=== PATIENT | male | born 1950 | race Caucasian/White ===

== ENCOUNTER 2016-09-11 23:09 | Emergency (ER) | payer OTHER ==
[~2016-09-11] VITALS: Ht 185.4 cm; Wt 86.4 kg
[2016-09-11 23:22] VITALS: Ht 185.4 cm; Wt 86.4 kg
[2016-09-11] MEDS ORDERED: CLOP75TA27 PO (23:31)
[2016-09-11] MEDS ORDERED: LISI20TA11 PO (23:31)
[2016-09-11] MEDS ORDERED: ATOR40TA68 PO (23:32)
[2016-09-11] MEDS ORDERED: SOD CHLORIDE 0.9% 1,000 ML IV STA (23:42)
[2016-09-12 00:21] LABS: ALBUMIN 3.8 g/dl (3.3-4.9)
[2016-09-12 00:22] LABS: POTASSIUM 3.7 mmol/L (3.5-5.1)
[2016-09-12 00:24] LABS: BILIRUBIN,INDIRECT 0.2 mg/dl (0-1.1); BILIRUBIN,TOTAL 0.2 mg/dl (0.2-1.3); CREATININE 1.05 mg/dl (0.61-1.24)
[2016-09-12 00:25] LABS: ALBUMIN/GLOBULIN RATIO 1.02; CALCIUM 8.6 mg/dl (8.4-10.2); TOTAL PROTEIN 7.5 g/dl (6.1-8.1)
[2016-09-12 00:42] LABS: BASOPHILS % 0.2 % (0.0-2.0); HEMATOCRIT 41.6 % (42.0-52.0); HEMOGLOBIN 14.6 g/dl (14.0-18.0); LYMPHOCYTES # 0.7 10^3/ul (0.8-2.9); LYMPHOCYTES % 13.9 % (15.0-51.0); MEAN CORPUSCULAR HEMOGLOBIN 31.4 pg (29.0-33.0); MEAN CORPUSCULAR HGB CONC 35.1 g/dl (32.0-37.0); MEAN CORPUSCULAR VOLUME 89.4 fl (82.0-101.0); MEAN PLATELET VOLUME 8.2 fl (7.4-10.4); MONOCYTE # 0.7 10^3/ul (0.3-0.9); MONOCYTES % 14.6 % (0.0-11.0); NEUTROPHIL # 3.5 10^3/ul (1.6-7.5); NEUTROPHILS % 71.3 % (39.0-77.0); PLATELET COUNT 159 10^3/UL (140-440); RED BLOOD COUNT 4.65 10^6/ul (4.70-6.10); RED CELL DISTRIBUTION WIDTH 14.1 % (11.5-14.5); UNCORRECTED WBC 4.9 10^3/ul (4.8-10.8); WHITE BLOOD COUNT 4.9 10^3/ul (4.8-10.8)
[2016-09-12 00:44] LABS: CONDITION 1
[2016-09-12] MEDS ORDERED: OSLT75C PO (01:49)
--- NOTE | 2016-09-12 01:52 | ERD ---
ER Documentation Chief Complaint Date/Time DATE: 09/12/16 TIME: 01:50 Chief Complaint generalized weakness,s/p fall,denies syncope/dizziness HPI This is a 66-year-old male who complains yesterday that he had flulike symptoms of fever chills malaise myalgia and dry cough. He says today the symptoms are better but he feels generally weak. Says he feels so weak that he has a hard time walking. He has no fall no syncope or dizziness no headache no fever today no chest pain shortness of breath abdominal pain nausea vomiting or diarrhea. He also denies myalgias today. ROS All systems reviewed and are negative except as per history of present illness. Medications Home Meds Active Scripts Oseltamivir Phosphate* (Tamiflu*) 75 Mg Capsule, 75 MG PO BID for 5 Days, CAP Prov:ANTONIO NAVARRO DO 09/12/16 Reported Medications Atorvastatin* (Atorvastatin*) 40 Mg Tablet, 40 MG PO QHS, #30 TAB 09/11/16 Clopidogrel Bisulfate (Clopidogrel) 75 Mg Tablet, 75 MG PO DAILY, #30 TAB 09/11/16 Lisinopril* (Lisinopril*) 20 Mg Tablet, 20 MG PO DAILY, #30 TAB 09/11/16 Allergies Allergies: Coded Allergies: No Known Allergy (Unverified , 09/11/16) PMhx/Soc History of Surgery: Yes (angiograms w cardiac stents) Anesthesia Reaction: No Hx Neurological Disorder: No Hx Respiratory Disorders: No Hx Cardiac Disorders: Yes (high cholesterol, cardiac stents, HTN) Hx Psychiatric Problems: No Hx Miscellaneous Medical Probl: Yes (IBS) Hx Alcohol Use: No Hx Substance Use: Yes (medical marijuana daily) Hx Tobacco Use: Yes (1.5 packs/ day) Smoking Status: Current every day smoker FmHx Family History: No coronary disease Physical Exam Vitals Vital Signs Date Time Temp Pulse Resp B/P Pulse Ox O2 Delivery O2 Flow Rate FiO2 09/12/16 00:11 98.9 57 23 143/81 95 Room Air 09/11/16 23:22 99.3 66 18 152/77 95 Physical Exam Const: Well-developed, well-nourished Head: Atraumatic, normocephalic Eyes: Normal Conjunctiva, PERRLA, EOMI, normal sclera, no nystagmus ENT: Normal External Ears, Nose and Mouth, moist mucus membranes. Neck: Full range of motion. No meningismus, no lymphadenopathy. Resp: Clear to auscultation bilaterally, no wheezing, rhonchi, rales Cardio: Regular rate and rhythm, no murmurs, S1 S2 present Abd: Soft, non tender x 4, non distended. Normal bowel sounds, no guarding or rebound, no pulsitile abdominal masses or bruits Skin: No petechiae or rashes, no ecchymosis , no maculopapular rash Back: No midline or flank tenderness Ext: No cyanosis, or edema, FROM x 4, normal inspection, neurovascularly intact x 4 Neur: Awake and alert, STR 5/5 x 4, sensation intact x 4, no focal findings, cerebellum intact Psych: Normal Mood and Affect Result Diagram: 09/11/16234909/11/160 Results 24 hrs Laboratory Tests Test 09/11/16 23:50 Alanine Aminotransferase (ALT/SGPT) 30IU/L Albumin 3.8g/dl Albumin/Globulin Ratio 1.02 Alkaline Phosphatase 93IU/L Anion Gap 14 Aspartate Amino Transf (AST/SGOT) 35IU/L Basophils # 0.010^3/ul Basophils % 0.2% Blood Urea Nitrogen 13mg/dl Calcium Level 8.6mg/dl Carbon Dioxide Level 27mmol/L Chloride Level 93mmol/L Creatinine 1.05mg/dl Direct Bilirubin 0.00mg/dl Eosinophils # 0.010^3/ul Eosinophils % 0.0% Globulin 3.70g/dl Glucose Level 97mg/dl Hematocrit 41.6% Hemoglobin 14.6g/dl Indirect Bilirubin 0.2mg/dl Lymphocytes # 0.710^3/ul Lymphocytes % 13.9% Mean Corpuscular Hemoglobin 31.4pg Mean Corpuscular Hemoglobin Concent 35.1g/dl Mean Corpuscular Volume 89.4fl Mean Platelet Volume 8.2fl Monocytes # 0.710^3/ul Monocytes % 14.6% Neutrophils # 3.510^3/ul Neutrophils % 71.3% Nucleated Red Blood Cells # 0.010^3/ul Nucleated Red Blood Cells % 0.0/100WBC Platelet Count 50401^3/UL Potassium Level 3.7mmol/L Red Blood Count 4.6510^6/ul Red Cell Distribution Width 14.1% Sodium Level 130mmol/L Total Bilirubin 0.2mg/dl Total Protein 7.5g/dl White Blood Count 4.910^3/ul Current Medications Medications (Trade) Dose Ordered Sig/Haile Route PRN Reason Start Time Stop Time Status Last Admin Dose Admin Sodium Chloride (NS) 1,000 ml @ 1,000 mls/hr Q1H STAT IV 09/11/16 23:42 09/12/16 00:41 DC 09/12/16 00:08 Procedures/MDM Chest X-ray 1V Interpreted by me: Soft Tissue: No acute abnormalities Bones: No acute abnormalities Mediastinum/Cardiac Silhouette/Lungs: No acute abnormalities, mild right lower lobe atelectasis Patient has slightly low sodium at 130. Flu swabs are negative however he does describe the clinical presentation flulike illness that could be a false negative reading Put him on Tamiflu and follow-up. Departure Diagnosis: Primary Impression: Viral illness Additional Impression: Acute weakness Condition: Stable Patient Instructions: Weakness, Unk Cause ANTONIO NAVARRO DO Sep 12, 2016 01:52
--- NOTE | 2016-09-12 02:02 | RADRPT ---
PROCEDURE: CHEST - 1 VIEW CLINICAL INDICATION: 66-year-old male with chest/abdominal pain. TECHNIQUE: A single frontal AP a view of the chest was performed portably. The images were review ed on a PACS workstation. COMPARISON: None. FINDINGS: The cardiomediastinal silhouette is prominent but within normal limits. There is no evidence for an infiltrate. There is no evidence for congestive heart failure. There is no evidence for pneumothor ax. The osseous structures are intact. IMPRESSION: No evidence for active cardiopulmonary disease. .Chris Loco MD, MD Date Time Electronically viewed and signed by .Chris Loco MD, MD on 09/12/2016 02:02 .Alex/
[2016-09-12 02:16] VITALS: BP 154/81; PULSE 85; RESP 19; TEMP 98.9
== END 2016-09-12 03:01 | disposition home or self-care (01) ==
LOC: E/R 23:09
DX: R50.9 Fever, unspecified (principal); R40.2362 Coma scale, best motor response, obeys commands, at arrival to emergency department; R53.1 Weakness; I10 Essential (primary) hypertension; F17.210 Nicotine dependence, cigarettes, uncomplicated; R40.2252 Coma scale, best verbal response, oriented, at arrival to emergency department; Z95.5 Presence of coronary angioplasty implant and graft
CPT/HCPCS: 36415; 71010; 80053; 85025; 87400; 99284; J7030

== ENCOUNTER 2016-09-12 13:14 | Inpatient (IN) | payer OTHER ==
[~2016-09-12] VITALS: Ht 185.4 cm; Wt 90.1 kg
[~2016-09-12 13:14] MED LIST: ATOR40TA68 PO; CLOP75TA27 PO; LISI20TA11 PO; OSLT75C PO
[2016-09-12] MEDS ORDERED: SOD CHLORIDE 0.9% 1,000 ML IV STA (13:17)
[2016-09-12] MEDS ORDERED: SOD CHLORIDE 0.9% 1,000 ML IV ONE (14:00)
[2016-09-12] MEDS ORDERED: LIDOCAINE 1% (MDV) 20 ML INJ SC ONE (14:00)
[2016-09-12 14:15] LABS: BASOPHILS % 0.4 % (0.0-2.0); EOSINOPHILS % 0.1 % (0.0-7.0); HEMATOCRIT 42.9 % (42.0-52.0); LYMPHOCYTES % 19.6 % (15.0-51.0); MEAN CORPUSCULAR HEMOGLOBIN 31.4 pg (29.0-33.0); MEAN CORPUSCULAR HGB CONC 35.1 g/dl (32.0-37.0); MEAN CORPUSCULAR VOLUME 89.7 fl (82.0-101.0); MEAN PLATELET VOLUME 8.1 fl (7.4-10.4); MONOCYTE # 0.7 10^3/ul (0.3-0.9); MONOCYTES % 13.4 % (0.0-11.0); NEUTROPHIL # 3.2 10^3/ul (1.6-7.5); NEUTROPHILS % 66.5 % (39.0-77.0); PLATELET COUNT 159 10^3/UL (140-440); RED BLOOD COUNT 4.78 10^6/ul (4.70-6.10); RED CELL DISTRIBUTION WIDTH 14.3 % (11.5-14.5); UNCORRECTED WBC 4.9 10^3/ul (4.8-10.8); WHITE BLOOD COUNT 4.9 10^3/ul (4.8-10.8)
[2016-09-12 14:19] LABS: CONDITION 1
[2016-09-12 14:20] LABS: POTASSIUM 4.1 mmol/L (3.5-5.1)
[2016-09-12 14:22] LABS: CREATININE 0.85 mg/dl (0.61-1.24)
[2016-09-12 14:23] LABS: CALCIUM 8.6 mg/dl (8.4-10.2)
[2016-09-12 14:35] LABS: TROPONIN-I 0.044 ng/ml (0.00-0.12)
--- NOTE | 2016-09-12 14:44 | RADRPT ---
PROCEDURE: CT Brain without contrast. CLINICAL INDICATION: Head trauma. Evaluate for intracranial hemorrhage. TECHNIQUE: A multiplanar CT of the brain was performed on a CT scanner utilizing axial imaging fro m the skull base through the vertex without IV contrast. The CTDIvol is 43.16 mGy and the DLP is 72 0.23 mGycm. One or more of the following dose reduction techniques were utilized: Automated exposu re control, adjustment of the mA and/or kV according to patient size, use of iterative reconstructio n technique. COMPARISON: None FINDINGS: No evidence of intracranial hemorrhage or abnormal extra-axial fluid collection. The brain parenchyma is normal attenuation morphology with preservation of guzman white differentiatio n and age appropriate size of the ventricles and subarachnoid spaces. Minimal mucosal thickening in the ethmoid air cells bilaterally compatible with mild chronic inflamm atory change.. The posterior fossa contents, brainstem, craniocervical junction, orbits, pituitary axis, paranasal sinuses, mastoid air cells, and calvarium are unremarkable. IMPRESSION: 1. No intracranial hemorrhage or acute intracranial. 2. Early ischemic injury may be occult to CT imaging and diffusion weighted MRI may be considered as clinically warranted. RPTAT:AAJJ Physician Gladys Date Time Electronically viewed and signed by Physician Gladys on 09/12/2016 14:44 PINKY/
[2016-09-12 14:59] VITALS: TEMP 98.3
[2016-09-12 15:58] LABS: # OF CELLS COUNTED 100
[2016-09-12 16:49] LABS: GLUCOSE,CSF 51 mg/dl (50-80)
[2016-09-12 17:04] LABS: %CREANATED RBC CSF 0 %; CSF COLOR PINKISH; CSF#TUBE COUNT TUBE#1; CSF#TUBES REC'D 4
[2016-09-12 17:05] LABS: CSF VOLUME 3.5 ml
[2016-09-12 17:06] LABS: CSF COLOR COLORLESS; CSF VOLUME 3.5 ml; CSF#TUBES REC'D 4
[2016-09-12 17:07] LABS: %CREANATED RBC CSF 0 %; CSF#TUBE COUNT TUBE#4
--- NOTE | 2016-09-12 17:18 | ERA ---
ER Documentation Chief Complaint Date/Time DATE: 09/12/16 TIME: 17:04 Chief Complaint BROUGHT IN BY EMS DUE TO GENERALIZED WEAKNESS WITH NO ONE SIDED DEFICIT HPI 66-year-old male who complains of 3-4 days of flulike symptoms including fever, chills, malaise, myalgia, generalized weakness and dry cough. He states he fell yesterday due to weak legs and injured the bridge of his nose and left knee yesterday prior to coming to the emergency department. He states he feels so weak that he has a hard time walking and has had multiple episodes of watery diarrhea today. He was seen and evaluated yesterday and a full workup was unremarkable and after IV hydration he was given a prescription for Tamiflu and discharged back home. He states he used 1 dose of Tamiflu although for continued symptoms and inability to get out of bed he called 911 again and was transported here. He has no fall no syncope or dizziness no headache no fever today no chest pain shortness of breath abdominal pain nausea vomiting or diarrhea. Patient denies recent antibiotic use, sick contacts, or travel. He does have a history irritable bowel syndrome, which she states is not usually associated with diarrhea. ROS All systems reviewed and are negative except as per history of present illness. Medications Home Meds Reported Medications Atorvastatin* (Atorvastatin*) 40 Mg Tablet, 40 MG PO QHS, #30 TAB 09/11/16 Clopidogrel Bisulfate (Clopidogrel) 75 Mg Tablet, 75 MG PO DAILY, #30 TAB 09/11/16 Lisinopril* (Lisinopril*) 20 Mg Tablet, 20 MG PO DAILY, #30 TAB 09/11/16 Discontinued Scripts Oseltamivir Phosphate* (Tamiflu*) 75 Mg Capsule, 75 MG PO BID for 5 Days, CAP Prov:ANTONIO NAVARRO DO 09/12/16 Allergies Allergies: Coded Allergies: No Known Allergy (Unverified , 09/11/16) PMhx/Soc IBS, hypertension, coronary artery disease status post coronary artery stenting History of Surgery: No Anesthesia Reaction: No Hx Neurological Disorder: No Hx Respiratory Disorders: No Hx Cardiac Disorders: No Hx Psychiatric Problems: No Hx Miscellaneous Medical Probl: No Hx Alcohol Use: No Hx Substance Use: No Hx Tobacco Use: No Smoking Status: Never smoker FmHx Family History: No diabetes Physical Exam Vitals Vital Signs Date Time Temp Pulse Resp B/P Pulse Ox O2 Delivery O2 Flow Rate FiO2 09/12/16 14:59 98.3 85 20 122/77 98 Room Air 09/12/16 14:59 Nasal Cannula 09/12/16 13:17 98.5 80 18 142/79 100 Physical Exam GENERAL: Well-developed, well-nourished, afebrile, dehydrated HEENT: Dry mucous membranes with tongue forrowing, superficial abrasion to the bridge of the nose without bony deformity, no cervical spine tenderness or step- off deformities, no goiter, no jaundice or icterus, extraocular movements intact without pain. No submandibular induration, and no pharyngeal erythema NEURO: Alert and oriented 3, cranial nerves II through XII intact bilaterally, pupils equal round reactive to light, no focal deficits or facial asymmetry, sensation intact distally Strength 5/5 in upper and lower extremities bilaterally. Patellar deep tendon reflexes are 2/4 bilaterally and normal. CARDIAC: Regular rate and rhythm, no murmurs rubs or gallops LUNGS: Clear bilaterally no wheezing crackles or stridor ABDOMEN: Soft nontender, no guarding, no rigidity, no rebound, no psoas sign no obturator sign. Normoactive bowel sounds SKIN: Warm and dry to touch, superficial abrasion to the bridge of the nose and anterior left knee, no hematomas, no lacerations, no ecchymosis, no target lesions, and without ulcers EXTREMITIES: No clubbing cyanosis or edema, calves are bilaterally symmetrical, no Homans sign, no popliteal cord sign. Distal pulses equal and bilateral PSYCH: Normal affect without agitation or irritability Result Diagram: 09/12/16 1400 09/12/16 1400 Results 24 hrs Laboratory Tests Test 09/12/16 14:00 Anion Gap 15 Basophils # 0.010^3/ul Basophils % 0.4% Blood Urea Nitrogen 14mg/dl Calcium Level 8.6mg/dl Carbon Dioxide Level 26mmol/L Chloride Level 96mmol/L Creatinine 0.85mg/dl Eosinophils # 0.010^3/ul Eosinophils % 0.1% Glucose Level 88mg/dl Hematocrit 42.9% Hemoglobin 15.0g/dl Lymphocytes # 1.010^3/ul Lymphocytes % 19.6% Mean Corpuscular Hemoglobin 31.4pg Mean Corpuscular Hemoglobin Concent 35.1g/dl Mean Corpuscular Volume 89.7fl Mean Platelet Volume 8.1fl Monocytes # 0.710^3/ul Monocytes % 13.4% Neutrophils # 3.210^3/ul Neutrophils % 66.5% Nucleated Red Blood Cells # 0.010^3/ul Nucleated Red Blood Cells % 0.0/100WBC Platelet Count 71861^3/UL Potassium Level 4.1mmol/L Red Blood Count 4.7810^6/ul Red Cell Distribution Width 14.3% Sodium Level 133mmol/L Troponin I 0.044ng/ml White Blood Count 4.910^3/ul Current Medications Medications (Trade) Dose Ordered Sig/Haile Route PRN Reason Start Time Stop Time Status Last Admin Dose Admin Sodium Chloride (NS) 1,000 ml @ 1,000 mls/hr Q1H STAT IV 09/12/16 13:17 09/12/16 14:16 DC 09/12/16 14:12 Lidocaine 20 ml 20 ml ONCE ONCE SC 09/12/16 14:00 09/12/16 14:01 DC Sodium Chloride (NS) 1,000 ml @ 1,000 mls/hr Q1H ONCE IV 09/12/16 14:00 09/12/16 14:59 DC Procedures/MDM IV line was established patient was placed on properties supervisor rhythm strip revealed a sinus bradycardia at about 60 bpm with upright P and T waves. Patient was afebrile. Blood and urine cultures have been ordered results are pending I will follow-up. EKG performed, read by me revealed a sinus bradycardia 58 bpm, left axis deviation and a right ventricular conduction delay, QRS duration 112 ms, no concerning ST elevations or depressions noted. CT scan of the brain was performed that was negative for acute bleed mass or shift. Chest X-ray 1V Interpreted by me: Soft Tissue: No acute abnormalities Bones: No acute abnormalities Mediastinum/Cardiac Silhouette/Lungs: No acute abnormalities Lumbar Puncture by me: Patient consented, time out performed, sterilely prepped/draped, anesthetized locally. Anesthesia: 1% lidocaine locally Location: One interspace below the iliac crest Technique: 25 gauge needle with stylet for entry and removal of needle Results: Clear CSF fluid No post procedure complications, bleeding, numbness or weakness. CBC was unremarkable, electrolytes revealed a hyponatremia at 133, BUN/ creatinine 14/0.9, liver function tests are normal, troponin was negative. CSF protein, glucose, white cells have been ordered results are pending I will follow-up. Cerebrospinal fluid protein electrophoresis and cultures have also been ordered, further management and diagnostic testing deferred to hospitalist. I administered 3 L normal saline intravenously for dehydration Patient has continued URI symptoms, severe dehydration clinically, diarrhea, and generalized as well as lower extremity weakness. Guillain [place] syndrome, although unlikely, has been considered. Further diagnostic testing and imaging if indicated will be deferred to inpatient managing team. Departure Diagnosis: Primary Impression: Acute weakness Additional Impressions: Dehydration Diarrhea Qualified Code: R19.7 - Diarrhea, unspecified type Condition: GAYATHRI Rutherford MD Sep 12, 2016 17:17
[2016-09-12 19:35] LABS: ADD UMIC YES; URINE BILIRUBIN (Dip) NEGATIVE (NEGATIVE); URINE BLOOD (Dip) 2+ (NEGATIVE); URINE COLOR LT. YELLOW (YELLOW); URINE GLUCOSE (Dip) NEGATIVE (NEGATIVE); URINE KETONES (Dip) 15 (NEGATIVE); URINE LEUKOCYTE ESTERASE (Dip) NEGATIVE (NEGATIVE); URINE NITRITE (Dip) NEGATIVE (NEGATIVE); URINE TOTAL PROTEIN (Dip) NEGATIVE (NEGATIVE); URINE UROBILINOGEN (Dip) 0.2 E.U./dL (0.1-1.0)
[2016-09-12 19:41] LABS: URINE RBCS 0-2 /HPF (0)
[2016-09-12 20:08] LABS: BARBITURATES NEGATIVE (NEGATIVE); BENZODIAZEPINES NEGATIVE (NEGATIVE); CANNABINOIDS POSITIVE (NEGATIVE); COCAINE NEGATIVE (NEGATIVE); OPIATES NEGATIVE (NEGATIVE)
[2016-09-12 20:10] VITALS: BP 144/81; RESP 19
[2016-09-12] MEDS ORDERED: ONDANSETRON 4 MG INJ IV PRN (21:00)
[2016-09-12] MEDS ORDERED: HYDROCODONE/APAP (5/325) TAB PO PRN (21:00)
[2016-09-12 21:28] VITALS: Ht 185.4 cm; Wt 90.1 kg
--- NOTE | 2016-09-12 21:29 | HP ---
DATE OF ADMISSION: 09/12/2016 PRESENTING COMPLAINT: Generalized weakness. HISTORY OF PRESENTING COMPLAINT: Mr. Siegel is a 66-year-old male who was brought in by EMS [facility] of generalized weakness associated with chills and flu-like symptoms for the last 3 days and the weakness is worse in his extremities. The patient states he was here, was seen in our emergency matthew m yesterday after he fell because of said weakness and treated for flu-like symptoms and actually di scharged home on Tamiflu. The patient stated that he took 1 dose of Tamiflu, has been drinking a lo t of water without relief. He unfortunately is unable to maintain his activities of daily living. He was too weak and so he called 911 to bring him back to the [facility]. In the emergency room, the juanita antoine, upon history, is known to have a history of irritable bowel syndrome and he does have diarrh ea, but, per report, only once or twice a month, but over the last couple of days, he has been havin g a lot more diarrhea. Because of this history, the physician was worried about the possibility of Guillain-[place] syndrome and she decided to a lumbar puncture, which was uneventful. The preliminary cell count from the lumbar puncture was also not suggestive of an acute infection, but is being sen t for further studies to rule out GBS. The patient is being admitted for further management and car e. PAST MEDICAL HISTORY: Positive for IBS, dyslipidemia, and high blood pressure as well as the patien t is on Plavix for coronary artery stent. He has a history of coronary artery disease. PAST SURGICAL HISTORY: Stenting only. ALLERGIES: NO KNOWN DRUG ALLERGIES. SOCIAL HISTORY: The patient does not smoke tobacco or drink alcohol, but he does use marijuana recr eationally. REVIEW OF SYSTEMS: A 12-point review of system was done. Pertinent findings are as noted in HPI. FAMILY HISTORY: Noncontributory. HOME MEDICATIONS: 1. Lipitor 40 p.o. at bedtime. 2. Plavix 75 daily. 3. Lisinopril 20 daily. PHYSICAL EXAMINATION: VITAL SIGNS: Temperature 98.3, pulse 76, respirations 20, blood pressure 157/92, saturations 99% on room air. GENERAL: The patient was alert and oriented, in no distress, slightly lethargic. He did specifical ly look dehydrated. HEENT: Head is normocephalic. Mucous membranes are dry. NECK: Supple. No tenderness. No stiffness. No JVD. CHEST: Clear to auscultation. CARDIOVASCULAR: S1 and S2. No murmurs. ABDOMEN: Soft, nontender, nondistended. EXTREMITIES: Lower extremities were without edema. NEUROLOGIC: He was able to move all extremities, but he just had general feeling of weakness. Crescencio ed any numbness or tingling sensation. PSYCHIATRIC: Cooperative with exam. LABORATORY VALUES: Basically unremarkable save for his sodium that was low yesterday and is a littl e better today, but still low at 133. Carbon dioxide level 63. The potassium and the rest of the b asic metabolic profile was normal. I ordered a stat creatinine kinase and that came back elevated a t 4655, but liver profile was normal. His stat C-reactive protein also came back mildly elevated at 1.3. His urinalysis had 2+ hemoglobin, but not otherwise suggestive of a urinary tract infection. Toxicology screen was positive for marijuana use. IMAGING STUDIES: Chest x-ray did not show any acute cardiopulmonary abnormalities. CT scan of the brain showed no intracranial hemorrhage or acute intracranial pathology. The radiologist did note t hat early ischemic injury may be occult for CT and they recommended an MRI if that was a concern, wh ich in this case is not. ASSESSMENT: A 66-year-old male who presents today with flu-like symptoms as well as a history of my algia and weakness managed as follows: 1. Probable viral syndrome. Influenza screen was negative. Continue supportive care. 2. Mild rhabdomyolysis causing severe weakness. Rehydration and serial monitoring. 3. Hyponatremia, mild, improved from prior. Continue gentle rehydration. 4. Follow up cerebrospinal fluid findings to completely rule out Guillan-[place] syndrome. 5. History of irritable bowel syndrome. However, will get stool studies to rule out other patholog y. History of diarrhea. Rule out acute flare also causing symptoms. 6. High blood pressure is ____ control. 7. Dyslipidemia for which we will be holding his statin therapy in view of myalgia. PLAN: Admit the patient to medical/surgical floor. [place] therapy as indicated above. Supporti ve care will include IV fluid therapy, pain control, antiemetics, and antipyretics. Further interve ntions will depend on his clinical course. Although the decision on how to handle an IBS flare, I w ill speak with GI for possible consult and follow their recommendations. This has been reviewed wit h the patient in detail, questions have been answered. For prophylaxis, he is on SCDs as well as or al PPI. Dictated By: MARITA MARINO MD BA/NTS Conf#: [id number] DID#: [id number]
[2016-09-12] MEDS: SOD CHLORIDE 0.9% 1,000 ML IV SCH (23:17)
[2016-09-12] MEDS: FAMOTIDINE 20 MG TAB PO SCH (23:17)
[2016-09-12] MEDS: LACTOBACILLUS CHEW TAB PO SCH (23:17)
[2016-09-12 23:50] LABS: CK-MB 5.83 ng/ml (0.0-2.4); TROPONIN-I 0.052 ng/ml (0.00-0.12)
[2016-09-13 08:09] VITALS: BP 149/79; RESP 18
[2016-09-13] MEDS: SOD CHLORIDE 0.9% 1,000 ML IV SCH ×3 (09:00→18:10)
[2016-09-13] MEDS: LACTOBACILLUS CHEW TAB PO SCH ×3 (09:04→21:05)
[2016-09-13] MEDS: FAMOTIDINE 20 MG TAB PO SCH ×2 (09:04→21:05)
[2016-09-13] MEDS: CLOPIDOGREL 75 MG TAB PO SCH (09:04)
[2016-09-13] MEDS: LISINOPRIL 20 MG TAB PO SCH (09:04)
[2016-09-13] MEDS ORDERED: GLYCOPYRROLATE 1 MG INJ ONE (09:45)
[2016-09-13] MEDS ORDERED: PROPOFOL 20 ML ONE (09:45)
[2016-09-13] MEDS ORDERED: FENTAnyl 50 MCG/ML VIAL ONE (09:45)
[2016-09-13] MEDS ORDERED: MIDAZOLAM 1 MG/ML 2 ML INJ ONE (09:45)
[2016-09-13] MEDS ORDERED: ROCURONIUM 50 MG INJ ONE (09:45)
[2016-09-13] MEDS ORDERED: LIDOCAINE 2% (SDV) 5 ML INJ ONE (09:45)
[2016-09-13] MEDS ORDERED: NEOSTIGMINE 3 MG/3 ML SYRINGE ONE (09:45)
[2016-09-13] MEDS ORDERED: hydrALAzine 20 MG INJ ONE (09:46)
[2016-09-13 10:40] LABS: BASOPHILS % 0.6 % (0.0-2.0); EOSINOPHILS % 0.1 % (0.0-7.0); HEMATOCRIT 41.3 % (42.0-52.0); HEMOGLOBIN 14.4 g/dl (14.0-18.0); LYMPHOCYTES # 1.2 10^3/ul (0.8-2.9); LYMPHOCYTES % 30.1 % (15.0-51.0); MEAN CORPUSCULAR HGB CONC 34.9 g/dl (32.0-37.0); MEAN CORPUSCULAR VOLUME 88.6 fl (82.0-101.0); MEAN PLATELET VOLUME 7.9 fl (7.4-10.4); MONOCYTE # 0.4 10^3/ul (0.3-0.9); MONOCYTES % 10.8 % (0.0-11.0); NEUTROPHIL # 2.2 10^3/ul (1.6-7.5); NEUTROPHILS % 58.4 % (39.0-77.0); PLATELET COUNT 145 10^3/UL (140-440); RED BLOOD COUNT 4.66 10^6/ul (4.70-6.10); RED CELL DISTRIBUTION WIDTH 14.1 % (11.5-14.5); UNCORRECTED WBC 3.8 10^3/ul (4.8-10.8); WHITE BLOOD COUNT 3.8 10^3/ul (4.8-10.8)
[2016-09-13 10:41] LABS: CONDITION 1
[2016-09-13 11:08] LABS: ALBUMIN 3.4 g/dl (3.3-4.9)
[2016-09-13 11:10] LABS: BILIRUBIN,INDIRECT 0.1 mg/dl (0-1.1); BILIRUBIN,TOTAL 0.1 mg/dl (0.2-1.3); TOTAL PROTEIN 6.7 g/dl (6.1-8.1)
[2016-09-13 11:11] LABS: MAGNESIUM 1.7 mg/dl (1.7-2.5)
[2016-09-13 11:19] LABS: CK-MB 7.51 ng/ml (0.0-2.4)
[2016-09-13 11:22] LABS: TROPONIN-I 0.056 ng/ml (0.00-0.12)
[2016-09-13 11:41] LABS: THYROID STIMULATING HORMONE 3.45 MIU/L (0.465-4.680)
[2016-09-13] MEDS ORDERED: ONDANSETRON 4 MG INJ ONE (13:46)
--- NOTE | 2016-09-13 15:41 | PN ---
Date/Time of Note Date/Time of Note DATE: 09/13/16 TIME: 15:37 Assessment/Plan VTE Prophylaxis VTE Prophylaxis Intervention: SCD's Lines/Catheters IV [facility] Peripheral IV Urinary Cath still in place: No Assessment/Plan Chief Complaint/Hosp Course Assessment and plan 1. Generalized weakness suspect secondary to viral syndrome. Follow-up on lumbar puncture results. 2. Rhabdomyolysis with severe weakness. Continue IV hydration. Follow up on levels in a.m. 3. Hyponatremia continue IV fluid. 4. History of irritable bowel syndrome. Patient being ruled out for C. difficile. Follow up on results. 5. CAD. Continue on antiplatelet therapy Disposition and plan: Continue physical therapy. Await final results of CSF fluid. We'll get neurologist pending clinical course. Continue inpatient monitoring for now. Discussed care with Dr. García Problems: Subjective 24 Hr Interval Summary Free Text/Dictation Still reports having some generalized weakness but improved a little bit today. Exam/Review of Systems Vital Signs Vitals Vital Signs Date Time Temp Pulse Resp B/P Pulse Ox O2 Delivery O2 Flow Rate FiO2 09/13/16 08:09 98.2 50 18 149/79 98 09/12/16 19:53 Room Air Intake and Output 09/12/16 09/12/16 09/13/16 14:59 22:59 06:59 Intake Total 1150 ml Output Total 800 ml Balance 350 ml Exam General: No acute signs or symptoms of distress Eyes: pupils equal round, Anicteric sclera Neck: Supple nontender, no JVD Cardiac: S1, S2 auscultated, regular rhythm and rate Pulmonary: No coarse rhonchi or breathing auscultated GI: Abdomen soft nontender nondistended, bowel sounds active Extremities: No edema bilateral lower extremities Skin: Clean dry and intact Neurologic: Alert to person place and time and situation Results Result Diagram: 09/13/16 1000 09/12/16 1400 Results 24 hrs Laboratory Tests Test 09/12/16 15:50 09/12/16 18:23 09/12/16 23:08 09/13/16 10:00 CSF Appearance SLIGHTLY HAZY CSF Cell Count Tube # TUBE#4 CSF Color COLORLESS CSF Crenated Cells 0 CSF Glucose 51 CSF Lymphocytes % 100 CSF Monocytes % CSF Neutrophils % CSF RBC 100 H CSF Total Cells Counted 100 CSF Total Protein 69 H CSF Tubes Submitted 4 CSF Volume 3.5 CSF WBC 1 Urine Amphetamines Screen NEGATIVE Urine Barbiturates NEGATIVE Urine Benzodiazepines Screen NEGATIVE Urine Bilirubin NEGATIVE Urine Cannabinoids POSITIVE Urine Clarity CLEAR Urine Cocaine Screen NEGATIVE Urine Color LT. YELLOW Urine Glucose NEGATIVE Urine Hemoglobin 2+ H Urine Ketones 15 Urine Leukocyte Esterase NEGATIVE Urine Microscopic RBC 0-2 Urine Microscopic WBC 0-2 Urine Nitrite NEGATIVE Urine Opiates Screen NEGATIVE Urine Specific Johnson >=1.030 H Urine Total Protein NEGATIVE Urine Urobilinogen 0.2 E.U./dL Urine pH 5.5 Creatine Kinase 608 H 724 H Creatine Kinase Index 1.0 1.0 Creatinine Kinase MB (Mass) 5.83 H 7.51 H Troponin I 0.052 0.056 Alanine Aminotransferase (ALT/SGPT) 31 Albumin 3.4 Alkaline Phosphatase 75 Aspartate Amino Transf (AST/SGOT) 58 #H Basophils # 0.0 Basophils % 0.6 Direct Bilirubin 0.00 Eosinophils # 0.0 Eosinophils % 0.1 Hematocrit 41.3 L Hemoglobin 14.4 Hemoglobin A1c 5.8 Indirect Bilirubin 0.1 Lymphocytes # 1.2 Lymphocytes % 30.1 Magnesium Level 1.7 Mean Corpuscular Hemoglobin 31.0 Mean Corpuscular Hemoglobin Concent 34.9 Mean Corpuscular Volume 88.6 Mean Platelet Volume 7.9 Monocytes # 0.4 Monocytes % 10.8 Neutrophils # 2.2 Neutrophils % 58.4 Nucleated Red Blood Cells # 0.0 Nucleated Red Blood Cells % 0.0 Platelet Count 145 Red Blood Count 4.66 L Red Cell Distribution Width 14.1 Thyroid Stimulating Hormone (TSH) 3.450 Total Bilirubin 0.1 L Total Protein 6.7 White Blood Count 3.8 #L Medications Medications Current Medications Sodium Chloride (NS) 1,000 ml @ 125 mls/hr Q8H IV Last administered on 09:00; Admin Dose 125 MLS/HR; Start 09/12/16 at 21:00 Famotidine (Pepcid) 20 mg BID PO Last administered on 09/13/16 09:04; Admin Dose 20 MG; Start 09/12/16 at 21:00 Ondansetron HCl (Zofran Inj) 4 mg Q6H PRN IV NAUSEA AND/OR VOMITING; Start at 21:00 Acetaminophen/ Hydrocodone Bitart ([place] (5/325)) 1 tab Q6H PRN PO pain; Start 09/12/16 at 21:00 Lactobacillus Acidoph/Bulgaricus (Floranex) 1 tab TID PO Last administered on 12:30; Admin Dose 1 TAB; Start 09/12/16 at 21:00 Atorvastatin Calcium (Lipitor) 40 mg QHS PO ; Start 09/13/16 at 21:00 Clopidogrel Bisulfate (plaVIX) 75 mg DAILY PO Last administered on 09/13/16 09 :04; Admin Dose 75 MG; Start 09/13/16 at 09:00 Lisinopril (Zestril) 20 mg DAILY PO Last administered on 09/13/16 09:04; Admin Dose 20 MG; Start 09/13/16 at 09:00 MARIETTA SAM Sep 13, 2016 15:41
[2016-09-13 20:01] VITALS: BP 128/72; RESP 20
[2016-09-13] MEDS ORDERED: ATORVASTATIN 40 MG TAB PO SCH (21:00)
[2016-09-14] MEDS: SOD CHLORIDE 0.9% 1,000 ML IV SCH ×3 (03:09→20:02)
[2016-09-14 05:51] LABS: ALBUMIN 3.1 g/dl (3.3-4.9)
[2016-09-14 05:52] LABS: POTASSIUM 3.8 mmol/L (3.5-5.1)
[2016-09-14 05:54] LABS: ALBUMIN/GLOBULIN RATIO 0.96; BILIRUBIN,INDIRECT 0.3 mg/dl (0-1.1); BILIRUBIN,TOTAL 0.3 mg/dl (0.2-1.3); CREATININE 0.81 mg/dl (0.61-1.24); TOTAL PROTEIN 6.3 g/dl (6.1-8.1)
[2016-09-14 05:55] LABS: CALCIUM 7.9 mg/dl (8.4-10.2)
[2016-09-14 06:14] LABS: CK-MB 7.33 ng/ml (0.0-2.4)
[2016-09-14 08:12] VITALS: BP 123/58; RESP 16
[2016-09-14] MEDS: LACTOBACILLUS CHEW TAB PO SCH ×3 (08:46→20:01)
[2016-09-14] MEDS: FAMOTIDINE 20 MG TAB PO SCH ×2 (08:46→20:01)
[2016-09-14] MEDS: CLOPIDOGREL 75 MG TAB PO SCH (08:46)
[2016-09-14] MEDS: LISINOPRIL 20 MG TAB PO SCH (08:47)
[2016-09-14 09:07] LABS: BASOPHILS % 0.3 % (0.0-2.0); EOSINOPHILS % 0.2 % (0.0-7.0); HEMATOCRIT 41.4 % (42.0-52.0); LYMPHOCYTES # 1.3 10^3/ul (0.8-2.9); LYMPHOCYTES % 36.1 % (15.0-51.0); MEAN CORPUSCULAR HGB CONC 33.9 g/dl (32.0-37.0); MEAN CORPUSCULAR VOLUME 91.5 fl (82.0-101.0); MEAN PLATELET VOLUME 8.6 fl (7.4-10.4); MONOCYTE # 0.4 10^3/ul (0.3-0.9); MONOCYTES % 11.6 % (0.0-11.0); NEUTROPHIL # 1.9 10^3/ul (1.6-7.5); NEUTROPHILS % 51.8 % (39.0-77.0); PLATELET COUNT 138 10^3/UL (140-440); RED BLOOD COUNT 4.52 10^6/ul (4.70-6.10); RED CELL DISTRIBUTION WIDTH 13.9 % (11.5-14.5); UNCORRECTED WBC 3.6 10^3/ul (4.8-10.8); WHITE BLOOD COUNT 3.6 10^3/ul (4.8-10.8)
[2016-09-14 09:29] LABS: CONDITION 1
--- NOTE | 2016-09-14 13:26 | CONS ---
Date/Time of Note Date/Time of Note DATE: 09/14/16 TIME: 13:14 Assessment/Plan Assessment/Plan Chief Complaint/Hosp Course 66 year old M with flu-like symptoms, diarrhea, dehydration admitted with mild rhabdomyolysis and generalized weakness. Neurology consulted to evaluate for possible GBS. LP done with mild elevation of protein: 65. Neurologic exam findings show mostly UE weakness in flexion with intact and appropriate deep tendon reflexes. Suspect Viral Myositis and generalized weakness secondary to rhabdomyolysis and dehydration Symptoms are now improving with IVF. Continue supportive care and IV hydration, will reexamine patient again tomorrow PT/OT evaluation Problems: Consultation Date/Type/Reason Admit Date/Time Sep 12, 2016 at 16:56 Date of Consultation: Sep 14, 2016 Type of Consultation: neurology Reason for Consultation r/o GBS Referring Provider: MARIETTA SAM of Present Illness 66 year old M history of IBS, CAD admitted on 09/12 for complaints of generalized weakness with chills and flu-like symptoms, poor PO intake over the past week. This past weekend he had difficulty ambulating in his home, on attempt he fell and had abrasions on his nose and left knee due to weakness. On admission CPK elevated to 724, hemoglobin in urine c/w mild rhabdomyolysis. Given complaints of diarrhea and generalized weakness, LP was done for concern of GBS. CSF protein mildly elevated to 69. Since admission and fluid hydration he reports improvement in his symptoms, worked with physical therapy to ambulate yesterday. His weakness is mostly in UE muscles on flexion. He denies any urinary or bowel incontinence, has chronic LE numbness/tingling denies any new numbness sensation. myalgias generalized weakness diarrhea Past Medical History CAD IBS Social History Smoking Status: Current every day smoker Drug Use: marijuana Exam/Review of Systems Vital Signs Vitals Vital Signs Date Time Temp Pulse Resp B/P Pulse Ox O2 Delivery O2 Flow Rate FiO2 09/14/16 08:12 98.0 44 16 123/58 100 09/12/16 19:53 Room Air Intake and Output 09/13/16 09/13/16 09/14/16 15:00 23:00 07:00 Intake Total 1920 ml 1620 ml Output Total 1550 ml 1100 ml Balance 370 ml 520 ml Exam awake and alert oriented x3 speech fluent appears thin, malnourished follows all commands CN: JOESPH, VFF, EOMI no nystagmus, V1-3 intact no facial asymmetry palate upgoing uvula midline scm/trap intact tongue midline Motor: UE strength shoulder shrug 5/5, biceps 4/5, 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 5-/5 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 5-/5 LE strength hip flexion/extension 5/5 knee flexion/extension 5/5 ankle dorsiflexion and plantarflexion 5/5 mild weakness mostly in UE flexion Sensory intact throughout no sensory level Reflexes UE 2+ biceps and triceps, LE Patellar 2+, AJ 1+ toes downgoing Results Result Diagram: 09/14/160 09/14/160 Results 24 hrs Laboratory Tests Test 09/14/16 04:40 Alanine Aminotransferase (ALT/SGPT) 33 Albumin 3.1 L Albumin/Globulin Ratio 0.96 Alkaline Phosphatase 66 Anion Gap 15 Aspartate Amino Transf (AST/SGOT) 58 H Basophils # 0.0 Basophils % 0.3 Blood Urea Nitrogen 12 Calcium Level 7.9 L Carbon Dioxide Level 27 Chloride Level 100 Creatine Kinase 620 H Creatinine 0.81 Creatinine Kinase MB (Mass) 7.33 H Direct Bilirubin 0.00 Eosinophils # 0.0 Eosinophils % 0.2 Globulin 3.20 Glucose Level 77 Hematocrit 41.4 L Hemoglobin 14.0 Indirect Bilirubin 0.3 Lymphocytes # 1.3 Lymphocytes % 36.1 Mean Corpuscular Hemoglobin 31.0 Mean Corpuscular Hemoglobin Concent 33.9 Mean Corpuscular Volume 91.5 Mean Platelet Volume 8.6 Monocytes # 0.4 Monocytes % 11.6 H Neutrophils # 1.9 Neutrophils % 51.8 Nucleated Red Blood Cells # 0.0 Nucleated Red Blood Cells % 0.0 Platelet Count 138 L Potassium Level 3.8 Red Blood Count 4.52 L Red Cell Distribution Width 13.9 Sodium Level 138 Total Bilirubin 0.3 Total Protein 6.3 White Blood Count 3.6 L Medications Medications Current Medications Sodium Chloride (NS) 1,000 ml @ 125 mls/hr Q8H IV Last administered on 12:42; Admin Dose 125 MLS/HR; Start 09/12/16 at 21:00 Famotidine (Pepcid) 20 mg BID PO Last administered on 09/14/16 08:46; Admin Dose 20 MG; Start 09/12/16 at 21:00 Ondansetron HCl (Zofran Inj) 4 mg Q6H PRN IV NAUSEA AND/OR VOMITING; Start at 21:00 Acetaminophen/ Hydrocodone Bitart ([place] (5/325)) 1 tab Q6H PRN PO pain; Start 09/12/16 at 21:00 Lactobacillus Acidoph/Bulgaricus (Floranex) 1 tab TID PO Last administered on 12:42; Admin Dose 1 TAB; Start 09/12/16 at 21:00 Clopidogrel Bisulfate (plaVIX) 75 mg DAILY PO Last administered on 09/14/16 08 :46; Admin Dose 75 MG; Start 09/13/16 at 09:00 Lisinopril (Zestril) 20 mg DAILY PO Last administered on 09/14/16 08:47; Admin Dose 20 MG; Start 09/13/16 at 09:00 HUNTER TRONCOSO MD Sep 14, 2016 13:26
--- NOTE | 2016-09-14 14:36 | PN ---
Date/Time of Note Date/Time of Note DATE: 09/14/16 TIME: 14:34 Assessment/Plan VTE Prophylaxis VTE Prophylaxis Intervention: SCD's Lines/Catheters IV [facility] Peripheral IV Urinary Cath still in place: No Assessment/Plan Chief Complaint/Hosp Course Assessment and plan 1. Generalized weakness suspect secondary to viral myositis. Neurologist following. cont with recommendations 2. Rhabdomyolysis with severe weakness. Continue IV hydration. cont with PT 3. Hyponatremia continue IV fluid. improved at this time 4. History of irritable bowel syndrome. no acute issues at this time 5. CAD. Continue on antiplatelet therapy Disposition and plan: Continue physical therapy. continue with neurology recs. Will get social science professor to follow for home safety. Will see for possible ARU Discussed care with Dr. García Problems: Subjective 24 Hr Interval Summary Free Text/Dictation still reports weakness but little better Exam/Review of Systems Vital Signs Vitals Vital Signs Date Time Temp Pulse Resp B/P Pulse Ox O2 Delivery O2 Flow Rate FiO2 09/14/16 08:12 98.0 44 16 123/58 100 09/12/16 19:53 Room Air Intake and Output 09/13/16 09/13/16 09/14/16 15:00 23:00 07:00 Intake Total 1920 ml 1620 ml Output Total 1550 ml 1100 ml Balance 370 ml 520 ml Exam General: No acute signs or symptoms of distress Eyes: pupils equal round, Anicteric sclera Neck: Supple nontender, no JVD Cardiac: S1, S2 auscultated, regular rhythm and rate Pulmonary: No coarse rhonchi or breathing auscultated GI: Abdomen soft nontender nondistended, bowel sounds active Extremities: No edema bilateral lower extremities Skin: Clean dry and intact Neurologic: Alert to person place and time and situation Results Result Diagram: 09/14/16 0440 09/14/16 0440 Results 24 hrs Laboratory Tests Test 09/14/16 04:40 Alanine Aminotransferase (ALT/SGPT) 33 Albumin 3.1 L Albumin/Globulin Ratio 0.96 Alkaline Phosphatase 66 Anion Gap 15 Aspartate Amino Transf (AST/SGOT) 58 H Basophils # 0.0 Basophils % 0.3 Blood Urea Nitrogen 12 Calcium Level 7.9 L Carbon Dioxide Level 27 Chloride Level 100 Creatine Kinase 620 H Creatinine 0.81 Creatinine Kinase MB (Mass) 7.33 H Direct Bilirubin 0.00 Eosinophils # 0.0 Eosinophils % 0.2 Globulin 3.20 Glucose Level 77 Hematocrit 41.4 L Hemoglobin 14.0 Indirect Bilirubin 0.3 Lymphocytes # 1.3 Lymphocytes % 36.1 Mean Corpuscular Hemoglobin 31.0 Mean Corpuscular Hemoglobin Concent 33.9 Mean Corpuscular Volume 91.5 Mean Platelet Volume 8.6 Monocytes # 0.4 Monocytes % 11.6 H Neutrophils # 1.9 Neutrophils % 51.8 Nucleated Red Blood Cells # 0.0 Nucleated Red Blood Cells % 0.0 Platelet Count 138 L Potassium Level 3.8 Red Blood Count 4.52 L Red Cell Distribution Width 13.9 Sodium Level 138 Total Bilirubin 0.3 Total Protein 6.3 White Blood Count 3.6 L Medications Medications Current Medications Sodium Chloride (NS) 1,000 ml @ 125 mls/hr Q8H IV Last administered on 12:42; Admin Dose 125 MLS/HR; Start 09/12/16 at 21:00 Famotidine (Pepcid) 20 mg BID PO Last administered on 09/14/16 08:46; Admin Dose 20 MG; Start 09/12/16 at 21:00 Ondansetron HCl (Zofran Inj) 4 mg Q6H PRN IV NAUSEA AND/OR VOMITING; Start at 21:00 Acetaminophen/ Hydrocodone Bitart ([place] (5/325)) 1 tab Q6H PRN PO pain; Start 09/12/16 at 21:00 Lactobacillus Acidoph/Bulgaricus (Floranex) 1 tab TID PO Last administered on 12:42; Admin Dose 1 TAB; Start 09/12/16 at 21:00 Clopidogrel Bisulfate (plaVIX) 75 mg DAILY PO Last administered on 09/14/16 08 :46; Admin Dose 75 MG; Start 09/13/16 at 09:00 Lisinopril (Zestril) 20 mg DAILY PO Last administered on 09/14/16 08:47; Admin Dose 20 MG; Start 09/13/16 at 09:00 MARIETTA SAM Sep 14, 2016 14:36
[2016-09-14 20:31] VITALS: BP 112/59; RESP 16
[2016-09-15] MEDS: SOD CHLORIDE 0.9% 1,000 ML IV SCH ×2 (04:40→13:56)
[2016-09-15 05:37] LABS: ALBUMIN 3.1 g/dl (3.3-4.9)
[2016-09-15 05:40] LABS: ALBUMIN/GLOBULIN RATIO 0.96; BILIRUBIN,INDIRECT 0.2 mg/dl (0-1.1); BILIRUBIN,TOTAL 0.2 mg/dl (0.2-1.3); CALCIUM 7.9 mg/dl (8.4-10.2); CREATININE 0.77 mg/dl (0.61-1.24); TOTAL PROTEIN 6.3 g/dl (6.1-8.1)
[2016-09-15 05:53] LABS: BASOPHILS % 0.2 % (0.0-2.0); EOSINOPHILS % 0.4 % (0.0-7.0); HEMATOCRIT 39.9 % (42.0-52.0); HEMOGLOBIN 13.4 g/dl (14.0-18.0); LYMPHOCYTES # 1.5 10^3/ul (0.8-2.9); LYMPHOCYTES % 38.6 % (15.0-51.0); MEAN CORPUSCULAR HGB CONC 33.7 g/dl (32.0-37.0); MEAN CORPUSCULAR VOLUME 92.1 fl (82.0-101.0); MEAN PLATELET VOLUME 8.4 fl (7.4-10.4); MONOCYTE # 0.6 10^3/ul (0.3-0.9); MONOCYTES % 13.9 % (0.0-11.0); NEUTROPHIL # 1.9 10^3/ul (1.6-7.5); NEUTROPHILS % 46.9 % (39.0-77.0); PLATELET COUNT 132 10^3/UL (140-440); RED BLOOD COUNT 4.33 10^6/ul (4.70-6.10); RED CELL DISTRIBUTION WIDTH 14.2 % (11.5-14.5)
[2016-09-15 05:54] LABS: CONDITION 1
[2016-09-15 08:17] VITALS: BP 156/75; RESP 18
[2016-09-15] MEDS: LISINOPRIL 20 MG TAB PO SCH (08:28)
[2016-09-15] MEDS: LACTOBACILLUS CHEW TAB PO SCH ×2 (08:28→13:56)
[2016-09-15] MEDS: FAMOTIDINE 20 MG TAB PO SCH (08:28)
[2016-09-15] MEDS: CLOPIDOGREL 75 MG TAB PO SCH (08:31)
--- NOTE | 2016-09-15 13:03 | CONS ---
Date/Time of Note Date/Time of Note DATE: 09/15/16 TIME: 13:01 Consult Date/Type/Reason Admit Date/Time Sep 12, 2016 at 16:56 Initial Consult Date 09/14/16 Type of Consultation: neurology Reason for Consultation generalized weakness evaluate for GBS Ordering Provider: MARIETTA SAM Subjective symptoms improving, weakness in UE and LE now 5/5 planned for acute rehab temporarily Objective Vital Signs Date Time Temp Pulse Resp B/P Pulse Ox O2 Delivery O2 Flow Rate FiO2 09/15/16 08:17 98.3 45 18 156/75 100 09/12/16 19:53 Room Air Intake and Output 09/14/16 09/14/16 09/15/16 15:00 23:00 07:00 Intake Total 500 ml 2315 ml 1338 ml Output Total 1400 ml 1250 ml Balance 500 ml 915 ml 88 ml awake and alert oriented x3 speech fluent appears thin, malnourished follows all commands CN: JOESPH, VFF, EOMI no nystagmus, V1-3 intact no facial asymmetry palate upgoing uvula midline scm/trap intact tongue midline Motor: UE strength 5/5 LE strength hip flexion/extension 5/5 knee flexion/extension 5/5 ankle dorsiflexion and plantarflexion 5/5 improved flexion strength in UE Sensory intact throughout no sensory level Reflexes UE 2+ biceps and triceps, LE Patellar 2+, AJ 1+ toes downgoing Results/Medications Result Diagram: 09/15/16 0439 09/15/16 0435 Results 24 hrs Laboratory Tests Test 09/15/16 04:35 09/15/16 04:39 Alanine Aminotransferase (ALT/SGPT) 31 Albumin 3.1 L Albumin/Globulin Ratio 0.96 Alkaline Phosphatase 64 Anion Gap 12 Aspartate Amino Transf (AST/SGOT) 63 H Blood Urea Nitrogen 9 Calcium Level 7.9 L Carbon Dioxide Level 29 Chloride Level 100 Creatinine 0.77 Direct Bilirubin 0.00 Globulin 3.20 Glucose Level 101 Indirect Bilirubin 0.2 Potassium Level 4.0 Sodium Level 137 Total Bilirubin 0.2 Total Protein 6.3 Basophils # 0.0 Basophils % 0.2 Eosinophils # 0.0 Eosinophils % 0.4 Hematocrit 39.9 L Hemoglobin 13.4 L Lymphocytes # 1.5 Lymphocytes % 38.6 Mean Corpuscular Hemoglobin 31.0 Mean Corpuscular Hemoglobin Concent 33.7 Mean Corpuscular Volume 92.1 Mean Platelet Volume 8.4 Monocytes # 0.6 Monocytes % 13.9 H Neutrophils # 1.9 Neutrophils % 46.9 Nucleated Red Blood Cells # 0.0 Nucleated Red Blood Cells % 0.0 Platelet Count 132 L Red Blood Count 4.33 L Red Cell Distribution Width 14.2 White Blood Count 4.0 L Medications Current Medications Sodium Chloride (NS) 1,000 ml @ 125 mls/hr Q8H IV Last administered on 04:40; Admin Dose 125 MLS/HR; Start 09/12/16 at 21:00 Famotidine (Pepcid) 20 mg BID PO Last administered on 09/15/16 08:28; Admin Dose 20 MG; Start 09/12/16 at 21:00 Ondansetron HCl (Zofran Inj) 4 mg Q6H PRN IV NAUSEA AND/OR VOMITING; Start at 21:00 Acetaminophen/ Hydrocodone Bitart ([place] (5/325)) 1 tab Q6H PRN PO pain; Start 09/12/16 at 21:00 Lactobacillus Acidoph/Bulgaricus (Floranex) 1 tab TID PO Last administered on 08:28; Admin Dose 1 TAB; Start 09/12/16 at 21:00 Clopidogrel Bisulfate (plaVIX) 75 mg DAILY PO Last administered on 09/14/16 08 :46; Admin Dose 75 MG; Start 09/13/16 at 09:00 Lisinopril (Zestril) 20 mg DAILY PO Last administered on 09/15/16 08:28; Admin Dose 20 MG; Start 09/13/16 at 09:00 Assessment/Plan Chief Complaint/Hosp Course 66 year old M with flu-like symptoms, diarrhea, dehydration admitted with mild rhabdomyolysis and generalized weakness. Neurology consulted to evaluate for possible GBS. LP done with mild elevation of protein: 65. Neurologic exam findings show mostly UE weakness in flexion with intact and appropriate deep tendon reflexes. Suspect Viral Myositis and generalized weakness secondary to rhabdomyolysis and dehydration Symptoms have now significantly improved with hydration and supportive care planned for AR, stable for discharge planning Problems: HUNTER TRONCOSO MD Sep 15, 2016 13:03
[2016-09-15] MEDS ORDERED: ACID1TAB14 PO (15:09)
--- NOTE | 2016-09-15 16:03 | PDOCDIS ---
Discharge Instructions DIAGNOSIS Discharge Diagnosis: 1. suspect viral myositis 2. dehydration CONDITION Patient Condition: Stable HOME CARE INSTRUCTIONS: Special Diet: low cholestrol OTHER ORDERS: Other Orders: 1. Further care and management per Acute rehab facility services MARIETTA SAM Sep 15, 2016 16:03
--- NOTE | 2016-09-15 16:51 | DS ---
Date/Time of Note Date/Time of Note DATE: 09/15/16 TIME: 16:46 Discharge Summary Admission/Discharge Info Admit Date/Time Sep 12, 2016 at 16:56 Discharge Date/Time Patient Condition: Stable Consults 1. Dr. [place] Monsivais Hospital Course This is a 66-year-old male who came to [facility] due to reports of generalized weakness. Of note patient does have history of IBS, dyslipidemia, hypertension, and coronary artery disease with stent. Patient did report that he had flulike symptoms 3 days prior to admission which did resolve. He was given Tamiflu and sent home. Patient stated he took one dose of Tamiflu and been drinking water but still continue to feel generalized weakness. He denied any fevers. He did report that he had been having increase diarrhea as well. He was becoming [facility] for further evaluation. Patient was ruled out for C. difficile colitis. He also did receive lumbar puncture study for study of possible Guillain-[place]. He was seen by neurologist and was ruled out for Guillain-[place] syndrome. He was noted with elevated creatinine kinases and he was given IV hydration. After review is likely that the patient did have suspect viral myositis. He was treated for symptoms and optimized medically. He was seen by physical therapy and he did report increase in his strength. He was otherwise optimized medically. He was noted to be hyponatremic and there was suspicion for dehydration so the patient was given IV fluids. His diarrhea had subsided. He was continued on antiplatelet therapy for his CAD. After consultation with the patient patient was accepted to acute rehabilitation services at [facility]. Patient was agreeable to going to services. The plan of care was discussed with the patient and patient did verbalize understanding. On the day of discharge patient was in stable condition Discussed plan of care with Disposition: Home Discharge process time is 40 minutes Home Meds Active Scripts Lactobacillus Acidoph/Bulgaricus* (Floranex*) 1 Each Tablet, 1 TAB PO TID for 30 Days, TAB Prov:MARIETTA SAM 09/15/16 Reported Medications Atorvastatin* (Atorvastatin*) 40 Mg Tablet, 40 MG PO QHS, #30 TAB 09/11/16 Clopidogrel Bisulfate (Clopidogrel) 75 Mg Tablet, 75 MG PO DAILY, #30 TAB 09/11/16 Lisinopril* (Lisinopril*) 20 Mg Tablet, 20 MG PO DAILY, #30 TAB 09/11/16 Discontinued Scripts Oseltamivir Phosphate* (Tamiflu*) 75 Mg Capsule, 75 MG PO BID for 5 Days, CAP Prov:ANTONIO NAVARRO DO 09/12/16 Follow-up Plan CONDITION Patient Condition: Stable HOME CARE INSTRUCTIONS: Special Diet: low cholestrol OTHER ORDERS: Other Orders: 1. Further care and management per Acute rehab facility services Pending Labs Laboratory Tests Test 09/15/16 04:35 09/15/16 04:39 Alanine Aminotransferase (ALT/SGPT) 31IU/L (13-69) Albumin 3.1g/dl (3.3-4.9) Albumin/Globulin Ratio 0.96 Alkaline Phosphatase 64IU/L (42-121) Anion Gap 12 (8-16) Aspartate Amino Transf (AST/SGOT) 63IU/L (15-46) Blood Urea Nitrogen 9mg/dl (7-20) Calcium Level 7.9mg/dl (8.4-10.2) Carbon Dioxide Level 29mmol/L (21-31) Chloride Level 100mmol/L (97-110) Creatinine 0.77mg/dl (0.61-1.24) Direct Bilirubin 0.00mg/dl (0.00-0.20) Globulin 3.20g/dl (1.3-3.2) Glucose Level 101mg/dl (70-220) Indirect Bilirubin 0.2mg/dl (0-1.1) Potassium Level 4.0mmol/L (3.5-5.1) Sodium Level 137mmol/L (135-144) Total Bilirubin 0.2mg/dl (0.2-1.3) Total Protein 6.3g/dl (6.1-8.1) Basophils # 0.010^3/ul (0.0-0.1) Basophils % 0.2% (0.0-2.0) Eosinophils # 0.010^3/ul (0.0-0.5) Eosinophils % 0.4% (0.0-7.0) Hematocrit 39.9% (42.0-52.0) Hemoglobin 13.4g/dl (14.0-18.0) Lymphocytes # 1.510^3/ul (0.8-2.9) Lymphocytes % 38.6% (15.0-51.0) Mean Corpuscular Hemoglobin 31.0pg (29.0-33.0) Mean Corpuscular Hemoglobin Concent 33.7g/dl (32.0-37.0) Mean Corpuscular Volume 92.1fl (82.0-101.0) Mean Platelet Volume 8.4fl (7.4-10.4) Monocytes # 0.610^3/ul (0.3-0.9) Monocytes % 13.9% (0.0-11.0) Neutrophils # 1.910^3/ul (1.6-7.5) Neutrophils % 46.9% (39.0-77.0) Nucleated Red Blood Cells # 0.010^3/ul (0.0-0.0) Nucleated Red Blood Cells % 0.0/100WBC (0.0-0.0) Platelet Count 63792^3/UL (140-440) Red Blood Count 4.3310^6/ul (4.70-6.10) Red Cell Distribution Width 14.2% (11.5-14.5) White Blood Count 4.010^3/ul (4.8-10.8) MARIETTA SAM Sep 15, 2016 16:51
[2016-09-15 17:00] VITALS: BP 141/75; PULSE 53; RESP 18
[2016-09-16 13:25] LABS: VDRL, CSF NON-REACTIVE (NON-REACTIVE)
== END 2016-09-15 18:39 | DRG 556 ==
LOC: E/R 13:14 → PP2 16:56
PROVIDERS: ADMIT Family Medicine; ATTEND Family Medicine
PROC: 009U3ZX Drainage of Spinal Canal, Percutaneous Approach, Diagnostic (ICD-10-PCS; principal; 2016-09-12)
DX: M60.9 Myositis, unspecified (principal); M62.82 Rhabdomyolysis; E87.1 Hypo-osmolality and hyponatremia; B97.89 Other viral agents as the cause of diseases classified elsewhere; I25.10 Atherosclerotic heart disease of native coronary artery without angina pectoris; E78.5 Hyperlipidemia, unspecified; K58.0 Irritable bowel syndrome with diarrhea; F12.90 Cannabis use, unspecified, uncomplicated; E86.0 Dehydration; Z95.5 Presence of coronary angioplasty implant and graft; Z79.02 Long term (current) use of antithrombotics/antiplatelets
CPT/HCPCS: 36415; 70450; 80048; 80053; 80076; 80307; 81001; 81003; 82550; 82553; 82945; 83036; 83735; 84157; 84166; 84443; 84484; 85025; 86140; 86592; 87070; 89050; 93005; 97163; 97530; J0360; J2250; J2405; J2710; J3010; J7030

== ENCOUNTER 2016-09-15 14:47 | Inpatient (IN) | payer OTHER ==
[~2016-09-15] VITALS: Ht 185.4 cm; Wt 88.1 kg
[~2016-09-15 14:47] MED LIST changes: -OSLT75C PO
[2016-09-15] MEDS ORDERED: ACID1TAB14 PO (15:09)
[2016-09-15 19:04] VITALS: BP 115/62; PULSE 53; RESP 18
[2016-09-15 19:33] LABS: ADD UMIC YES; URINE BILIRUBIN (Dip) NEGATIVE (NEGATIVE); URINE BLOOD (Dip) TRACE (NEGATIVE); URINE COLOR LT. YELLOW (YELLOW); URINE GLUCOSE (Dip) NEGATIVE (NEGATIVE); URINE KETONES (Dip) NEGATIVE (NEGATIVE); URINE LEUKOCYTE ESTERASE (Dip) NEGATIVE (NEGATIVE); URINE NITRITE (Dip) NEGATIVE (NEGATIVE); URINE TOTAL PROTEIN (Dip) NEGATIVE (NEGATIVE); URINE UROBILINOGEN (Dip) 0.2 E.U./dL (0.1-1.0)
[2016-09-15 19:44] LABS: URINE RBCS 0-2 /HPF (0)
[2016-09-15 20:00] VITALS: Ht 185.4 cm; Wt 88.1 kg
[2016-09-15 20:17] VITALS: BP 124/75; RESP 16
[2016-09-15] MEDS ORDERED: LACTULOSE 30ML CUP PO PRN (20:30)
[2016-09-15] MEDS ORDERED: ACETAMINOPHEN 325 MG TAB PO PRN (20:30)
[2016-09-15] MEDS ORDERED: MAGNESIUM HYDROXIDE 30ML CUP PO PRN (20:30)
[2016-09-15] MEDS ORDERED: BISACODYL 10 MG SUPP PR PRN (20:30)
[2016-09-15] MEDS ORDERED: HYDROCODONE/APAP (5/325) TAB PO PRN (20:30)
[2016-09-15] MEDS ORDERED: ATORVASTATIN 40 MG TAB PO SCH (21:00)
[2016-09-15] MEDS: DOCUSATE SODIUM 100 MG CAP PO SCH (21:10)
[2016-09-15] MEDS: SENNA TAB PO SCH (21:10)
[2016-09-15] MEDS: FAMOTIDINE 20 MG TAB PO SCH (21:10)
[2016-09-15] MEDS: LACTOBACILLUS CHEW TAB PO SCH (21:10)
[2016-09-16 07:53] LABS: ALBUMIN 3.1 g/dl (3.3-4.9); BASOPHILS % 0.4 % (0.0-2.0); EOSINOPHILS % 0.4 % (0.0-7.0); HEMATOCRIT 39.4 % (42.0-52.0); HEMOGLOBIN 13.5 g/dl (14.0-18.0); LYMPHOCYTES # 1.6 10^3/ul (0.8-2.9); LYMPHOCYTES % 32.3 % (15.0-51.0); MEAN CORPUSCULAR HGB CONC 34.2 g/dl (32.0-37.0); MEAN CORPUSCULAR VOLUME 90.7 fl (82.0-101.0); MEAN PLATELET VOLUME 8.7 fl (7.4-10.4); MONOCYTE # 0.4 10^3/ul (0.3-0.9); MONOCYTES % 8.4 % (0.0-11.0); NEUTROPHIL # 2.9 10^3/ul (1.6-7.5); NEUTROPHILS % 58.5 % (39.0-77.0); PLATELET COUNT 120 10^3/UL (140-440); POTASSIUM 3.7 mmol/L (3.5-5.1); RED BLOOD COUNT 4.34 10^6/ul (4.70-6.10); RED CELL DISTRIBUTION WIDTH 14.2 % (11.5-14.5)
[2016-09-16 07:56] LABS: ALBUMIN/GLOBULIN RATIO 0.91; BILIRUBIN,INDIRECT 0.6 mg/dl (0-1.1); BILIRUBIN,TOTAL 0.6 mg/dl (0.2-1.3); CREATININE 0.79 mg/dl (0.61-1.24); TOTAL PROTEIN 6.5 g/dl (6.1-8.1)
[2016-09-16 08:00] VITALS: BP 146/74; RESP 18
[2016-09-16 08:05] LABS: CONDITION 1
[2016-09-16] MEDS: CLOPIDOGREL 75 MG TAB PO SCH ×2 (09:00→09:06)
[2016-09-16] MEDS: DOCUSATE SODIUM 100 MG CAP PO SCH ×2 (09:00→20:33)
[2016-09-16] MEDS: LACTOBACILLUS CHEW TAB PO SCH ×3 (09:06→20:30)
[2016-09-16] MEDS: LISINOPRIL 20 MG TAB PO SCH (09:06)
[2016-09-16] MEDS: FAMOTIDINE 20 MG TAB PO SCH ×2 (09:06→20:30)
--- NOTE | 2016-09-16 13:45 | CONS ---
DATE OF ADMISSION: 09/15/2016 DATE OF CONSULTATION: 09/16/2016 TYPE OF CONSULTATION: REHABILITATION POST ADMISSION PHYSICIAN EVALUATION REHABILITATION IMPAIRMENT CATEGORY: Viral myositis, rhabdomyolysis. ACTIVE COMORBIDITIES: 1. Irritable bowel syndrome. 2. Coronary artery disease with history of stent placement. 3. Hyponatremia. 4. Impairments in self-care and mobility. HISTORY OF PRESENT ILLNESS: The patient is a pleasant 66-year-old left-handed gentleman with a hist ory of irritable bowel syndrome, dyslipidemia, hypertension and coronary artery disease who was note d to have flu-like symptoms for 3 days and then generalized weakness including arms and legs. Patie nt had a fall at home due to the weakness with resultant facial trauma in addition to right upper ex tremity and left lower extremity abrasions. Neurology followed closely for possibility of Guillain- [place] syndrome. The patient did undergo lumbar puncture. Patient felt to have viral myositis in ad dition to rhabdomyolysis. The patient was also treated for severe dehydration. The patient has bee n left with significant impairments in self-care and mobility as compared to baseline, and has been cleared to transfer to the rehabilitation unit for comprehensive interdisciplinary rehab care. FUNCTIONAL HISTORY: Prior to recent events, he was independent in self-care tasks and mobility. Cu rrently, he requires moderate assist for self-care and mobility tasks. SOCIAL HISTORY: The patient reports living at home alone and hopes to return there upon discharge. He is currently working. PAST MEDICAL HISTORY: 1. Irritable bowel syndrome. 2. Coronary artery disease with history of stent placement. 3. History of intermittent lower extremity numbness. CURRENT MEDICATIONS: 1. Plavix 75 mg p.o. daily. 2. Pepcid 20 mg p.o. b.i.d. 3. [place] p.r.n. 4. Floranex t.i.d. 5. Lisinopril 20 mg p.o. daily. ALLERGIES: THE PATIENT WITH NO KNOWN DRUG ALLERGIES. PHYSICAL EXAMINATION: VITAL SIGNS: The patient is currently afebrile with stable vital signs. HEENT: Extraocular motions intact. Oropharynx clear. Patient with notable abrasion on the nasal br idge. LUNGS: Clear anteriorly. CARDIAC: S1, S2. ABDOMEN: Soft, nontender, positive bowel sounds. EXTREMITIES: Exam does reveal abrasion on the right upper extremity and left knee. NEUROLOGIC: He is awake and alert and oriented x3, can follow simple 1-step commands. Cranial nerv es are grossly intact. He has antigravity strength in bilateral upper extremity and lower extremity . He has impaired dynamic balance. PLAN: The patient has been admitted for comprehensive interdisciplinary acute rehab and is anticipa toney to tolerate 3 hours of daily therapy in divided doses for at least 5/7 days a week. Treatment p emperatriz will include: 1. Physical therapy to focus on bed mobility, transfers, and household ambulation with the goal of having the patient reach a modified independent level. 2. Occupational therapy to focus on hygiene, grooming, dressing, bathing, and toileting activities with the goal of having the patient reach a modified independent level. 3. Rehabilitation nursing for carryover of therapeutic interventions, the goal of continent of philip l and bladder, and the goal of patient education with regards to the aforementioned issues. REHABILITATION BARRIER: Weakness. INTERVENTION FOR BARRIER: Given the etiology presumed to be viral myositis will recommend avoiding over exertion. Precautions reviewed with the patient. ESTIMATED LENGTH OF STAY: One week. DISPOSITION GOAL: Home. I acknowledge that I performed a full physical examination on this patient within 24 hours of admiss ion to the rehabilitation unit believe the patient is a good candidate for comprehensive interdiscip linary rehab care and is anticipated to make reasonable goals in a reasonable period of time as outl ined above. Dictated By: LEAH DUKE/VAMSI Conf#: [id number] DID#: [id number]
--- NOTE | 2016-09-16 18:24 | CONS ---
DATE OF ADMISSION: 09/15/2016 DATE OF CONSULTATION: 09/16/2016 REASON FOR CONSULTATION: Medical management during course of acute rehabilitation. HISTORY OF PRESENT ILLNESS: This is a very pleasant 66-year-old gentleman with past medical history of dyslipidemia, coronary artery disease and hypertension who presented to [facility] Room on 09/11/2016 secondary to having generalized weakness and was discharged home after IV f luid and returned back to the emergency room on 09/12/2016 secondary to having worsening of the weak ness and not being able to ambulate. The patient was found to have elevated CPK of [address] arrival to the ER and then the second one was 608. He was started on aggressive IV fluid. This may have been secondary to Lipitor versus dehydration. Patient has a history of IBS, which he takes THC for the treatment and it has been helping. He states very infrequently, he probably has diarrh ea, maybe once or twice per month, which resolved spontaneously within a day or so. The patient was treated with aggressive IV fluid and was seen and evaluated by physical therapy. His C difficile w as rule out ruled out in the course of the hospitalization. He recent had a lumbar puncture study, possible Guillain-Hosford. He was seen by neurologist and was ruled out with Guillain-Hosford syndrome . As stated above, he was found to have elevated creatinine kinase, which he was given IV hydration . After review of it, the patient was suspected to have viral myositis and was treated for his symp toms and optimized medically. He was seen and evaluated by physical therapy and did report increase in his strength with otherwise medically stable and was found to be hypernatremic and there is susp icion for dehydration, which has improved significantly. His diarrhea has subsided and he was wilfrido nued on antiplatelet therapy for his coronary artery disease. After evaluation by physical therapy and acute rehab physician, he was accepted to acute rehab and has been transferred for further evalu ation and treatment. PAST MEDICAL AND SURGICAL HISTORY: 1. IBS. 2. Dyslipidemia. 3. Hypertension. 4. Coronary artery disease with stent. MEDICATIONS: 1. Colace. 2. Senna. 3. Acetaminophen. 4. Dulcolax. 5. Milk of magnesia. 6. Lactulose. 7. Plavix. 8. Amantadine. 9. Elkins. 10. Lactobacillus. 11. Lisinopril. 12. Lipitor. ALLERGIES: NO KNOWN DRUG ALLERGIES. FAMILY HISTORY: Noncontributory. SOCIAL HISTORY: Lives at home alone. Positive for history of smoking half a pack of cigarettes per day. Drinks alcohol only occasional times. REVIEW OF SYSTEMS: As above per HPI. Denies any fever, chills, weight gain, weight loss, no anorex ia. No chest pain, palpitations, edema, orthopnea. No change in visual acuity, diplopia, photophob ia. No headache, dizziness, lightheadedness. He did have bilateral upper and lower extremity weakn ess which has resolved. Otherwise, the 12 review of systems has been found to be negative. PHYSICAL EXAMINATION: VITAL SIGNS: Temperature 98.1, pulse 46, respiration 18, blood pressure 142/74, oxygen 100% in room air. GENERAL APPEARANCE: The patient is lying in bed comfortably without any distress. He is awake, hong rt, oriented. He is able to answer my questions properly. EYES AND ENT: Conjunctivae and lids are normal. Pupils are normal. Extraocular movements normal. Hearing grossly normal. Lips are normal. Oral mucosa is moist. NECK: Supple. Trachea midline. No lymphadenopathy. RESPIRATORY: Effort is normal. Clear to auscultation bilaterally. CARDIOVASCULAR: Normal S1, S2. Regular rhythm and rate. No murmur, no bruits, no edema. Peripher al pulses: 2+ palpable. Cap refill is normal. CHEST: Normal expansion. RESPIRATORY: Effort is normal. Clear to auscultation bilaterally. CARDIOVASCULAR: Normal S1, S2. Regular rhythm and rate. No murmur, no bruits, no edema. Peripher al pulses, radial pulses palpable. Cap refill is normal. CHEST: Normal expansion of thorax during inspiration. GASTROINTESTINAL: Abdomen is soft, nontender, nondistended. Bowel sounds present. No guarding, no rebound. GENITOURINARY: Deferred. MUSCULOSKELETAL: Upper and lower extremities within normal limits. Full range of motion, strength 5/5 in both upper and lower extremities. NEUROLOGIC: Cranial nerves II through XII are grossly intact. PSYCHIATRIC: Normal judgment and insight. Alert and oriented x3. Mood and affect is normal. LABORATORY WORK AND IMAGING: Sodium 138, potassium 3.7, chloride 100, bicarbonate 29, BUN 9, creati nine 0.79, glucose 94, calcium 8.0, hemoglobin 5.8. LFTs all within normal limits except AST is 59, total protein 6.5, albumin 3.1. Patient's lipid panel and TSH 3.450. Triglycerides 78, total chol esterol 114, LDL 59, HDL 39. WBC 5.3, hemoglobin 13.5, hematocrit 39.4, platelet 120. ASSESSMENT AND PLAN: 1. Generalized weakness likely secondary to viral myositis. 2. Rhabdomyolysis with severe weakness. 3. Hypernatremia, resolved. 4. History of irritable bowel syndrome. 5. Coronary artery disease. Patient has been admitted to the acute rehab unit for physical therapy. We will encourage oral flui d intake. At this time, I will decrease the patient's Lipitor 10 mg. At this time, I will not disc ontinue it secondary to his history of coronary artery disease and patient is also found to have mil d thrombocytopenia. I will follow up CBC in a.m. In regard to his history of hypertension, his bloo d pressure is well controlled on medical management. At this time, the patient is asymptomatic. Wi ll continue physical therapy as per acute rehab unit protocol. Dictated By: CONNOR BURCH MD PN/NTS Conf#: [id number] DID#: [id number]
[2016-09-16 19:21] VITALS: BP 132/73; RESP 18
[2016-09-16] MEDS: SENNA TAB PO SCH (20:33)
[2016-09-16] MEDS ORDERED: ATORVASTATIN 20 MG TAB PO SCH (21:00)
[2016-09-17 07:02] LABS: TROPONIN-I 0.025 ng/ml (0.00-0.12)
[2016-09-17 07:07] LABS: CK-MB 5.28 ng/ml (0.0-2.4)
[2016-09-17 07:30] VITALS: BP 145/74; RESP 18
[2016-09-17] MEDS: CLOPIDOGREL 75 MG TAB PO SCH (08:07)
[2016-09-17] MEDS: LACTOBACILLUS CHEW TAB PO SCH ×2 (08:08→12:10)
[2016-09-17] MEDS: LISINOPRIL 20 MG TAB PO SCH (08:08)
[2016-09-17] MEDS: FAMOTIDINE 20 MG TAB PO SCH (08:08)
[2016-09-17] MEDS: DOCUSATE SODIUM 100 MG CAP PO SCH (08:08)
[2016-09-17 08:09] VITALS: BP 145/74; PULSE 60; RESP 18
--- NOTE | 2016-09-17 12:31 | PN ---
Date/Time of Note Date/Time of Note DATE: 09/17/16 TIME: 12:30 Assessment/Plan VTE Prophylaxis VTE Prophylaxis Intervention: ambulation Lines/Catheters Urinary Cath still in place: No Assessment/Plan Chief Complaint/Hosp Course 1. Rhabdomyolysis. Improved. Renal function within normal limits. 2. Deconditioning. Undergoing acute rehabilitation. 3. CAD. Continue Plavix and statins. 4. Essential hypertension. Continue antihypertensives. 5. Fluids, electrolytes, and nutrition. Low-cholesterol diet. 6. DVT prophylaxis. Ambulation. 7. Gastrointestinal prophylaxis. Histamine 2 receptor blockers. The patient is medically stable to be discharged home if acute rehabilitation team is discharging the patient. Problems: Subjective 24 Hr Interval Summary Free Text/Dictation The patient getting ready to go home. Exam/Review of Systems Vital Signs Vitals Vital Signs Date Time Temp Pulse Resp B/P Pulse Ox O2 Delivery O2 Flow Rate FiO2 09/17/16 08:09 98.3 60 18 145/74 100 Room Air Intake and Output 09/16/16 09/16/16 09/17/16 15:00 23:00 07:00 Intake Total 840 ml 360 ml 300 ml Output Total 600 ml 700 ml 370 ml Balance 240 ml -340 ml -70 ml Exam General: Adequately build 66 year-old male lying in bed in no apparent distress. HEENT: Normocephalic, atraumatic. Eyes: Anicteric sclerae, conjunctivae clear. ENT: Nasal septum midline, oral mucosa moist. Neck supple, no JVD noticed. Respiratory: Bilaterally clear breath sounds. No use of accessory muscles of respiration. No adventitious breath sounds. Cardiovascular: S1, S2 heard. No murmurs or gallops. Abdomen: Soft, nontender, and nondistended. Bowel sounds positive in all 4 quadrants. Genitourinary: Deferred. Extremities: No cyanosis, no clubbing, no edema. Peripheral pulses palpable. Neurologic: Cranial nerves II through XII grossly intact. The patient is awake, alert, and oriented. Skin: Normal skin turgor. Results Result Diagram: 09/16/16 0600 09/16/16 0600 Results 24 hrs Laboratory Tests Test 09/17/16 05:55 Creatine Kinase 268 H Creatine Kinase Index 2.0 Creatinine Kinase MB (Mass) 5.28 H Troponin I 0.025 Medications Medications Current Medications Docusate Sodium (Colace) 100 mg BID PO Last administered on 09/15/16 21:10; Admin Dose 100 MG; Start 09/15/16 at 21:00 Senna (Senokot) 1 tab HS PO Last administered on 09/15/16 21:10; Admin Dose 1 TAB; Start 09/15/16 at 21:00 Acetaminophen (Tylenol Tab) 650 mg Q4H PRN PO PAIN; Start 09/15/16 at 20:30 Bisacodyl (Dulcolax Supp) 10 mg DAILY PRN [place] CONSTIPATION; Start 09/15/16 at 20: 30 Magnesium Hydroxide (Milk Of Mag) 30 ml BID PRN PO CONSTIPATION; Start 09/15/16 at 20:30 Lactulose (Enulose) 20 gm DAILY PRN PO CONSTIPATION; Start 09/15/16 at 20:30 Clopidogrel Bisulfate (plaVIX) 75 mg DAILY PO ; Start 09/16/16 at 09:00 Famotidine (Pepcid) 20 mg BID PO Last administered on 09/17/16 08:08; Admin Dose 20 MG; Start 09/15/16 at 21:00 Acetaminophen/ Hydrocodone Bitart ([place] (5/325)) 1 tab Q6H PRN PO pain; Start 09/15/16 at 20:30 Lactobacillus Acidoph/Bulgaricus (Floranex) 1 tab TID PO Last administered on 12:10; Admin Dose 1 TAB; Start 09/15/16 at 21:00 Lisinopril (Zestril) 20 mg DAILY PO Last administered on 09/17/16 08:08; Admin Dose 20 MG; Start 09/16/16 at 09:00 Atorvastatin Calcium (Lipitor) 20 mg QHS PO Last administered on 09/16/16 20:30 ; Admin Dose 20 MG; Start 09/16/16 at 21:00 SITA CADENA NP Sep 17, 2016 12:31
[2016-09-17 13:00] VITALS: BP 158/60; PULSE 82; RESP 20
== END 2016-09-17 13:19 | disposition home health service (06) | DRG 558 ==
LOC: VRC 18:30
PROVIDERS: ADMIT Physical Medicine & Rehabilitation; ATTEND Family Medicine
DX: M62.82 Rhabdomyolysis (principal); E87.1 Hypo-osmolality and hyponatremia; D69.6 Thrombocytopenia, unspecified; K58.9 Irritable bowel syndrome, unspecified; Z95.5 Presence of coronary angioplasty implant and graft; Z74.09 Other reduced mobility; Z72.0 Tobacco use
CPT/HCPCS: 80053; 81001; 81003; 82550; 82553; 84484; 85025; 87075; 87081; 87086; 95852; 97112; 97116; 97162; 97166; 97530; 97535

== ENCOUNTER 2018-03-31 18:08 | Inpatient (IN) | END 2018-04-05 16:15 | disposition home or self-care (01) | DRG 983 ==